=== PATIENT | female | born 1985 | race Caucasian/White ===

== ENCOUNTER 2017-12-09 13:18 | Inpatient (IN) ==
[2017-12-09 13:47] LABS: Bilirubin,Urine Moderate (Negative); Blood,Urine Negative (Negative); Clarity,Urine Cloudy (Clear); Color,Urine Dark Yellow (Yellow); Glucose,Urine (UA) Normal (Normal); Ketones,Urine 80 mg/dL (Negative); Leukocyte Esterase,Urine Negative (Negative); Nitrite,Urine Negative (Negative); Protein,Urine 100 mg/dL (Neg-Trace); Specific Gravity,Urine > 1.030 (1.010-1.025); Urobilinogen,Urine Normal (Normal)
[2017-12-09 13:51] LABS: Bacteria,Urine Moderate per hpf (None-Few); Hyaline Casts,Urine Few per lpf (None-Few); Squamous Epithelial Cell,Urine Many per lpf (None-Few)
[2017-12-09 14:02] LABS: Basophils % 0.2 %; Hemoglobin 13.8 g/dL (11.5-15.4); Immature Granulocytes % 0.4 % (0-4); Lymphocytes # 2.3 K/mcL (0.6-4.6); Lymphocytes % 20.7 %; Mean Corpuscular HGB Conc 32.9 g/dL (31.6-35.5); Mean Corpuscular Hemoglobin 29.7 pg (28.0-33.3); Mean Corpuscular Volume 90.3 fL (83.0-100.0); Mean Platelet Volume 9.3 fL (9.4-12.4); Monocytes # 0.4 K/mcL (0.0-1.3); Monocytes % 3.8 %; Neutrophils # 8.5 K/mcL (1.6-8.9); Platelet Count 401 K/mcL (140-400); Red Blood Count 4.65 M/mcL (3.82-4.97); Red Cell Distribution Width 15.8 % (11.5-14.5); Segmented Neutrophils % 74.9 %
[2017-12-09 14:27] LABS: Alanine Aminotransferase 11 Units/L (7-52); Albumin 4.8 g/dL (3.5-5.7); Albumin/Globulin Ratio 1.6 (1.1-2.2); Alkaline Phosphatase 52 Units/L (34-104); Aspartate Amino Transferase 12 Units/L (13-39); BUN/Creatinine Ratio 19 (6-26); Bilirubin,Direct 0.1 mg/dL (0.0-0.2); Bilirubin,Indirect 0.4 mg/dL (0.0-1.2); Bilirubin,Total 0.5 mg/dL (0.3-1.0); Blood Urea Nitrogen 14 mg/dL (6-20); Carbon Dioxide 18 mEq/L (23-29); Chloride 102 mEq/L (98-107); Glucose 121 mg/dL (70-105); Lipase 10 Units/L (11-82); Osmolality,Calculated 284 (280-300); Sodium 136 mEq/L (136-145); Total Protein 7.8 g/dL (6.4-8.9); eGFR For African Americans > 60 (> 60); eGFR For Non-African Americans > 60 (> 60)
[2017-12-09 14:40] LABS: Mucus,Urine Many (Few); Transitional Epi Cells,Urine Few per hpf (None-Few)
--- NOTE | 2017-12-09 14:40 | Emergency Department Note ---
Disposition Clinical Impression: Acute cholecystitis Disposition: Admitted As Inpatient Condition: Fair Time of Disposition: 15:25 Abdominal Pain HPI - General Chief Complaint: ED Abdominal Pain Stated Complaint: Gallbladder issues,vomiting Time Seen by Provider: 12/09/17 13:39 Source: patient Mode of arrival: ambulatory Limitations: no limitations Nursing Notes Reviewed: Yes Vital Signs Reviewed: Yes - History of Present Illness HPI Narrative: 32-year-old female presenting to the emergency department from ultrasound and her primary care physician's office for acute cholecystitis. She had an ultrasound done today that showed signs of acute cholecystitis she is having symptoms for approximately one month. This all right upper quadrant pain with some nausea. Labs were ordered in triage and only showed a leukocytosis otherwise everything else was normal. Ultrasound was reviewed and it did have a large, bile duct with pericholecystic fluid most likely for acute cholecystitis. Patient otherwise is having no complaint including no fevers, chills, chest pain, shortness of breath, back pain, neck pain, no pain with urination or changes in bowel movements, pain with urination. Patient has no other medical problems. Pain Scale: 2 - Related Data Home Medications Medication Instructions Recorded Confirmed No Known Home Drugs 12/09/17 12/09/17 Allergies Allergy/AdvReac Type Severity Reaction Status Date / Time No Known Allergies Allergy Verified 12/09/17 14:50 Review of Systems: 10 point review of systems done and negative unless otherwise stated in the history of present illness. All systems ED: reviewed and negative except as stated. 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: Reports: endometriosis Psychiatric history: Reports: no psych history - Social History Smoking status: Never smoker Alcohol use: Reports: none Drug use: Reports: unknown Physical Exam - General Limitations: no limitations General appearance: alert, in no apparent distress - Head Head exam: atraumatic, normocephalic, normal inspection - Eye Eye exam: Present: normal appearance, PERRL, EOMI - ENT ENT exam: normal exam, normal oropharynx, mucous membranes moist - Neck Neck exam: Present: normal inspection, full ROM, trachea midline - Chest Chest inspection: Present: normal inspection, symmetric chest wall rise - Respiratory Respiratory exam: Present: normal lung sounds bilaterally - Cardiovascular Cardiovascular exam: Present: regular rate, normal rhythm, normal heart sounds - Abdominal Exam Abdominal exam: Present: soft, tenderness (Tenderness in the right upper quadrant.), normal bowel sounds, Santa's sign. Absent: distention, guarding, rebound, rigidity, Rovsing's sign, tenderness at McBurney's Point Abdominal tenderness: Present: RUQ, moderate - Extremities Exam Extremities exam: Present: normal inspection, full ROM. Absent: tenderness, pedal edema - Expanded Lower Extremity Exam Neurovascular/Tendon exam: Present: normal capillary refill. Absent: pulse deficit, motor deficit, sensory deficit, tendon deficit - Neurological Exam Neurological exam: Present: alert, oriented X3 - Skin Skin exam: Present: warm, dry, intact, normal color Course Course Narrative: 32-year-old female presenting to the emergency department with right upper quadrant pain. Also was already done outpatient setting which did show acute cholecystitis. We will contact the on-call surgeon. No further treatment is needed at this time. - Consultations Consultation #1: Spoke with on-call surgeon Dr. Urban agreed to admit the patient to their service and they will see the patient in the emergency department. Patient is stable at this time. He had no recollection of this time they will place orders Time: 15:23 Vital Signs Temperature 97.7 F 12/09/17 13:20 Pulse Rate 142 12/09/17 13:20 Respiratory Rate 20 12/09/17 13:20 Blood Pressure 135/83 12/09/17 13:20 O2 Sat by Pulse Oximetry 96 12/09/17 13:20 Temperature 98.8 F 12/09/17 16:10 Pulse Rate 117 12/09/17 16:10 Respiratory Rate 20 12/09/17 16:10 Blood Pressure 122/82 12/09/17 16:10 O2 Sat by Pulse Oximetry 96 12/09/17 16:10 Oxygen Delivery Oxygen Delivery Room Air Abdominal Pain - MDM Narrative Medical decision making narrative: 32-year-old female here for acute cholecystitis spoke with the surgeon who will make the patient to their service. Patient does have acute cholecystitis based on ultrasound labs showed leukocytosis. Did place an IV and give patient Zofran and fentanyl for pain and nausea control. Patient is admitted to the surgical service and stable condition at this time. - Medical Records Medical records reviewed: Yes I reviewed the patient's medical records. - Lab Data Lab results reviewed: Yes I reviewed the patient's lab results. Result diagrams: 12/09/17 13:50 12/09/17 13:50 Lab Results 12/09/17 12/09/17 12/09/17 Range/Units 13:30 13:30 13:50 WBC 11.3 H (4.3-11.1) K/mcL RBC 4.65 (3.82-4.97) M/mcL Hgb 13.8 (11.5-15.4) g/dL Hct 42.0 (35.3-44.9) % MCV 90.3 (83.0-100.0) fL MCH 29.7 (28.0-33.3) pg MCHC 32.9 (31.6-35.5) g/dL RDW 15.8 H (11.5-14.5) % Plt Count 401 H (140-400) K/mcL MPV 9.3 L (9.4-12.4) fL Immature Gran % 0.4 (0-4) % Seg Neutrophils % 74.9 % Lymphocytes % 20.7 % Monocytes % 3.8 % Eosinophils % 0.0 % Basophils % 0.2 % Neutrophils # 8.5 (1.6-8.9) K/mcL Lymphocytes # 2.3 (0.6-4.6) K/mcL Monocytes # 0.4 (0.0-1.3) K/mcL Eosinophils # 0.0 (0.0-0.6) K/mcL Basophils # 0.0 (0.0-0.2) K/mcL Sodium (136-145) mEq/L Potassium (3.5-5.1) mEq/L Chloride (98-107) mEq/L Carbon Dioxide (23-29) mEq/L BUN (6-20) mg/dL Creatinine (0.60-1.20) mg/dL Est GFR ( Amer) (> 60) Est GFR (Non-Af Amer) (> 60) BUN/Creatinine Ratio (6-26) Glucose (70-105) mg/dL Calculated Osmolality (280-300) Calcium (8.6-10.3) mg/dL Total Bilirubin (0.3-1.0) mg/dL Direct Bilirubin (0.0-0.2) mg/dL Indirect Bilirubin (0.0-1.2) mg/dL AST (13-39) Units/L ALT (7-52) Units/L Alkaline Phosphatase (34-104) Units/L Serum Total Protein (6.4-8.9) g/dL Albumin (3.5-5.7) g/dL Globulin (2.4-3.5) g/dL Albumin/Globulin Ratio (1.1-2.2) Lipase (11-82) Units/L Urine Color Dark Yellow (Yellow) Urine Clarity Cloudy A (Clear) Urine pH 6.0 (5.0-8.0) pH Units Ur Specific [place] > 1.030 H (1.010-1.025) Urine Protein 100 H (Neg-Trace) mg/dL Urine Glucose (UA) Normal (Normal) mg/dL Urine Ketones 80 H (Negative) mg/dL Urine Blood Negative (Negative) Urine Nitrite Negative (Negative) Urine Bilirubin Moderate H (Negative) Urine Urobilinogen Normal (Normal) mg/dL Ur Leukocyte Esterase Negative (Negative) Urine Microscopic RBC 5-15 H (0-3) per hpf Urine Microscopic WBC 5-15 H (0-3) per hpf Ur Squamous Epith Cells Many H (None-Few) per lpf Ur Transition Epith Cell Few (None-Few) per hpf Urine Bacteria Moderate H (None-Few) per hpf Hyaline Casts Few (None-Few) per lpf Urine Mucus Many H (Few) Urine Test Negative (Negative) 12/09/17 Range/Units 13:50 WBC (4.3-11.1) K/mcL RBC (3.82-4.97) M/mcL Hgb (11.5-15.4) g/dL Hct (35.3-44.9) % MCV (83.0-100.0) fL MCH (28.0-33.3) pg MCHC (31.6-35.5) g/dL RDW (11.5-14.5) % Plt Count (140-400) K/mcL MPV (9.4-12.4) fL Immature Gran % (0-4) % Seg Neutrophils % % Lymphocytes % % Monocytes % % Eosinophils % % Basophils % % Neutrophils # (1.6-8.9) K/mcL Lymphocytes # (0.6-4.6) K/mcL Monocytes # (0.0-1.3) K/mcL Eosinophils # (0.0-0.6) K/mcL Basophils # (0.0-0.2) K/mcL Sodium 136 (136-145) mEq/L Potassium 4.0 (3.5-5.1) mEq/L Chloride 102 (98-107) mEq/L Carbon Dioxide 18 L (23-29) mEq/L BUN 14 (6-20) mg/dL Creatinine 0.74 (0.60-1.20) mg/dL Est GFR ( Amer) > 60 (> 60) Est GFR (Non-Af Amer) > 60 (> 60) BUN/Creatinine Ratio 19 (6-26) Glucose 121 H (70-105) mg/dL Calculated Osmolality 284 (280-300) Calcium 10.0 (8.6-10.3) mg/dL Total Bilirubin 0.5 (0.3-1.0) mg/dL Direct Bilirubin 0.1 (0.0-0.2) mg/dL Indirect Bilirubin 0.4 (0.0-1.2) mg/dL AST 12 L (13-39) Units/L ALT 11 (7-52) Units/L Alkaline Phosphatase 52 (34-104) Units/L Serum Total Protein 7.8 (6.4-8.9) g/dL Albumin 4.8 (3.5-5.7) g/dL Globulin 3.0 (2.4-3.5) g/dL Albumin/Globulin Ratio 1.6 (1.1-2.2) Lipase 10 L (11-82) Units/L Urine Color (Yellow) Urine Clarity (Clear) Urine pH (5.0-8.0) pH Units Ur Specific [place] (1.010-1.025) Urine Protein (Neg-Trace) mg/dL Urine Glucose (UA) (Normal) mg/dL Urine Ketones (Negative) mg/dL Urine Blood (Negative) Urine Nitrite (Negative) Urine Bilirubin (Negative) Urine Urobilinogen (Normal) mg/dL Ur Leukocyte Esterase (Negative) Urine Microscopic RBC (0-3) per hpf Urine Microscopic WBC (0-3) per hpf Ur Squamous Epith Cells (None-Few) per lpf Ur Transition Epith Cell (None-Few) per hpf Urine Bacteria (None-Few) per hpf Hyaline Casts (None-Few) per lpf Urine Mucus (Few) Urine Test (Negative) Attestation Statement - Attestation Attestation: I examined this patient and my medical decision-making was reviewed with the Resident Physician. I agree with the documented findings, disposition and treatment plan as described except to the extent set forth below. Tender, voluntary guarding. Non-toxic in appearance, hemodynamically normal. Studies reviewed by me. Accepted for admission by surgery.
[2017-12-09] MEDS ORDERED: Ondansetron 4 MG/2 ML VIAL IVP ONE (15:23)
[2017-12-09] MEDS ORDERED: *HR* FentaNYL (PF) 100 MCG/2 ML VIAL IVP ONE (15:23)
[2017-12-09] MEDS ORDERED: *HR* Promethazine 25 MG/ML VIAL IVP PRN (15:33)
[2017-12-09] MEDS ORDERED: Ondansetron 4 MG/2 ML VIAL IVP PRN (15:33)
[2017-12-09] MEDS ORDERED: OXYCODONE Oral CONC 10 MG/0.5 ML ORAL.SYG SL PRN (15:33)
[2017-12-09] MEDS ORDERED: Naloxone 0.4 MG/ML INJ IVP PRN (15:33)
[2017-12-09] MEDS ORDERED: Pantoprazole 40 MG VIAL IVP SCH (15:45)
[2017-12-09] MEDS ORDERED: 0.9 % Sodium Chloride 1,000 ML IVC SCH ×2 (15:45→18:00)
--- NOTE | 2017-12-09 15:53 | General Surg History&Physical ---
<Andrés Rich - Last Filed: 12/09/17 16:30> Date of Encounter: 12/09/17 Time of Encounter: 15:43 Assessment and Plan (1) Acute cholecystitis Current Visit: Yes Status: Acute The assessment and plan as outlined above was discussed with the patient and/or family members who expressed understanding and agreement. All questions were answered. Ultrasound on 12/09/17 reports suggests acute cholecystitis. Ultrasound report reads distended gallbladder with mild pericholecystic fluid and positive sonographic Santa's sign. Mildly prominent common bile duct measuring 7 mm. CBCs shows leukocytosis with a white blood count of 11.3. Patient is admitted to the surgical service. Dr. Chucho Sousa agrees to accept the patient and surgical intervention plan in the next 24 to 48 hours for acute cholecystitis. Patient had approximately 25 pound weight loss within the last month due to fear of food causing pain. -Pain control -IVF at 125 mls/hr -Order urine -Zofran and Promethazine as needed for nausea and vomiting. -IV antibiotics: Zosyn -NPO diet (2) Dehydration Current Visit: Yes Status: Acute The assessment and plan as outlined above was discussed with the patient and/or family members who expressed understanding and agreement. All questions were answered. Dehydration and tachycardia most likely secondary to weeks of nausea and vomiting. Patient was tachycardic on exam. -Patient was given 2 L bolus. Vitals rechecked. -MIVF at 125 mL per hour History of Present Illness Chief complaint: Nausea, vomiting, and RUQ pain HPI: Ms. Camilo is a 32 year old female with a surgical history of laparoscopic surgeriesx2 for her endometriosis presented to the emergency department from ultrasound per her primary care physician for acute cholecystitis. Patient states she has been having nausea and vomiting for the past 4 to 6 weeks. Per patient, She stated that she has visited the emergency department before but they were unable to do a ultrasound of a gallbladder because it was a weekend. She returned to the emergency department again in attempt to get another ultrasound but "it was too late in the day". Patient stated that she received an ultrasound for her gallbladder today and then later she received a call that stated she has to report to the emergency department. The patient continues to admit nausea and vomiting, no appetite, and right upper quadrant pain. She describes right upper quadrant pain as intermittent, sharp, with radiation to the back. She admits palpation makes the pain worse and sitting up and flexing forward makes the pain better. Her partner states that she "felt warm" but no documented fever. She denies any headaches, vision changes, near syncope, chest pain, shortness of breath, difficult the breathing, diarrhea, blood in stool, urinary symptoms, blood in her urine, numbness and tingling, and any weaknesses. The patient has no other concerns at this time. Past Med Surg Social Fam HX - Past Medical History Medical history: no medical history Psychiatric history: no psych history - Social History Smoking Status: Never smoker Smokeless Tobacco Status: No Alcohol use: none Drug use: unknown Medications and Allergies No Known Home Drugs 12/09/17 [History] 3 Allergy/AdvReac Type Severity Reaction Status Date / Time No Known Allergies Allergy Verified 12/09/17 14:50 Review of Systems All systems PM: The remainder of the systems were reviewed and are negative - Constitutional as per HPI General Surgery Exam Initial Vital Signs Temp Pulse Resp BP Pulse Ox 97.7 F 142 20 135/83 96 12/09/17 13:20 12/09/17 13:20 12/09/17 13:20 12/09/17 13:20 12/09/17 13:20 - General physical appearance well developed, well nourished, moderate distress, other (Patient appears to be a moderate distress. She appears anxious and shaky.) - Eyes PERRL, normal ocular movement - Neck trachea midline - Respiratory normal expansion, normal respiratory effort, clear to percussion, clear to auscultation - Cardiovascular Cardiovascular exam: Present: tachycardia, no murmurs/rubs/gallops - Abdomen Abdomen general surgery: Present: bowel sounds present, soft, tender (Right Upper quadrant tenderness to palpation. Positive Santa sign. Negative McBurney's point) Abdominal Tenderness: Present: RUQ - Integumentary Integumentary general surgery: Present: warm and dry, no abnormal pigmentation. Absent: diaphoresis - Neurologic Present: CN 2-12 grossly intact - Musculoskeletal Present: normal gait, normal posture - Psychiatric Psychiatric general surgery: Present: appropriate, oriented to person, oriented to place, oriented to time, speech is normal, other (Anxious) Results - Labs 12/09/17 13:50 12/09/17 13:50 Abnormal lab results WBC 11.3 K/mcL (4.3-11.1) H 12/09/17 13:50 RDW 15.8 % (11.5-14.5) H 12/09/17 13:50 Plt Count 401 K/mcL (140-400) H 12/09/17 13:50 MPV 9.3 fL (9.4-12.4) L 12/09/17 13:50 Carbon Dioxide 18 mEq/L (23-29) L 12/09/17 13:50 Glucose 121 mg/dL (70-105) H 12/09/17 13:50 AST 12 Units/L (13-39) L 12/09/17 13:50 Lipase 10 Units/L (11-82) L 12/09/17 13:50 Urine Clarity Cloudy (Clear) A 12/09/17 13:30 Ur Specific [place] > 1.030 (1.010-1.025) H 12/09/17 13:30 Urine Protein 100 mg/dL (Neg-Trace) H 12/09/17 13:30 Urine Ketones 80 mg/dL (Negative) H 12/09/17 13:30 Urine Bilirubin Moderate (Negative) H 12/09/17 13:30 Urine Microscopic RBC 5-15 per hpf (0-3) H 12/09/17 13:30 Urine Microscopic WBC 5-15 per hpf (0-3) H 12/09/17 13:30 Ur Squamous Epith Cells Many per lpf (None-Few) H 12/09/17 13:30 Urine Bacteria Moderate per hpf (None-Few) H 12/09/17 13:30 Urine Mucus Many (Few) H 12/09/17 13:30 All other labs normal. <Chucho Sousa - Last Filed: 12/09/17 19:11> Date of Encounter: 12/09/17 History of Present Illness HPI: Ms. Camilo is a 32 year old female Past Med Surg Social Fam HX - Family History Father Hx Family Cardiac Disorders: Yes Hx Family Endocrine Disorder: Yes (DM) Maternal Grandmother Living Status: Cause of : CA Hx Family Cancer: Yes (Colon) Review of Systems All systems PM: The remainder of the systems were reviewed and are negative General Surgery Exam Initial Vital Signs Temp Pulse Resp BP Pulse Ox 97.7 F 142 20 135/83 96 12/09/17 13:20 12/09/17 13:20 12/09/17 13:20 12/09/17 13:20 12/09/17 13:20 Results - Labs 12/09/17 13:50 12/09/17 13:50 Abnormal lab results WBC 11.3 K/mcL (4.3-11.1) H 12/09/17 13:50 RDW 15.8 % (11.5-14.5) H 12/09/17 13:50 Plt Count 401 K/mcL (140-400) H 12/09/17 13:50 MPV 9.3 fL (9.4-12.4) L 12/09/17 13:50 Carbon Dioxide 18 mEq/L (23-29) L 12/09/17 13:50 Glucose 121 mg/dL (70-105) H 12/09/17 13:50 AST 12 Units/L (13-39) L 12/09/17 13:50 Lipase 10 Units/L (11-82) L 12/09/17 13:50 Urine Clarity Cloudy (Clear) A 12/09/17 13:30 Ur Specific [place] > 1.030 (1.010-1.025) H 12/09/17 13:30 Urine Protein 100 mg/dL (Neg-Trace) H 12/09/17 13:30 Urine Ketones 80 mg/dL (Negative) H 12/09/17 13:30 Urine Bilirubin Moderate (Negative) H 12/09/17 13:30 Urine Microscopic RBC 5-15 per hpf (0-3) H 12/09/17 13:30 Urine Microscopic WBC 5-15 per hpf (0-3) H 12/09/17 13:30 Ur Squamous Epith Cells Many per lpf (None-Few) H 12/09/17 13:30 Urine Bacteria Moderate per hpf (None-Few) H 12/09/17 13:30 Urine Mucus Many (Few) H 12/09/17 13:30 All other labs normal. - Attending Attestation I have personally seen and examined the patient. I have reviewed pertinent labs , imaging, progress notes, including this one. I agree with the above assessment and plan and wish to include the following... 32F with biliary colic vs acute cholecystitis; currently in no acute distress, still with pain with radiation to her back; non peritoneal; will plan for robotic cholecystectomy tonight;
[2017-12-09] MEDS ORDERED: Piperacillin/Tazobactam 3.375 GM in D5% in Water (Mini-Bag+) 100 ML IVPB SCH ×2 (16:00)
[2017-12-09] MEDS: 0.9 % Sodium Chloride 1,000 ML IVC SCH ×4 (16:45→23:19)
[2017-12-09] MEDS: OXYCODONE Oral CONC 10 MG/0.5 ML ORAL.SYG SL PRN (18:18)
[2017-12-09] MEDS: Piperacillin/Tazobactam 3.375 GM in 0.9 % Sodium Chloride Mini Bag 100 ML IVPB SCH (18:30)
[2017-12-10] MEDS: OXYCODONE Oral CONC 10 MG/0.5 ML ORAL.SYG SL PRN (00:10)
[2017-12-10] MEDS ORDERED: *HR* Rocuronium Bromide 50 MG/5 ML VIAL ONE ×2 (01:02→03:20)
[2017-12-10] MEDS ORDERED: Lidocaine -MPF 2% 2 ML VIAL ONE (01:02)
[2017-12-10] MEDS ORDERED: Lidocaine -MPF 4% 5 ML AMPUL ONE (01:02)
[2017-12-10] MEDS ORDERED: *HR* Propofol 200 MG/20 ML VIAL IVP ONE (01:03)
[2017-12-10] MEDS ORDERED: *HR* Midazolam HCl 2 MG/2 ML VIAL ONE (01:03)
[2017-12-10] MEDS: Piperacillin/Tazobactam 3.375 GM in 0.9 % Sodium Chloride Mini Bag 100 ML IVPB SCH (01:03)
[2017-12-10] MEDS ORDERED: *HR* FentaNYL (PF) 100 MCG/2 ML VIAL ONE ×2 (01:03→02:48)
--- NOTE | 2017-12-10 01:16 | Anesthesia Evaluation PreOp ---
Date of Encounter: 12/10/17 Time of Encounter: 01:15 - Past History Planned Operation: Robotic lap cierra Cardiac History: Denies any Significant Hx Pulmonary History: Denies Any Significant HX BUS AIDE History: Denies Any Significant HX Other Medical History: Denies Any Significant HX Anesthesia History: No Prior Anesthetic Complications, Past Anesthesia ( laparoscopy for endometriosis) Test: Negative Alcohol Use: none Drug use: unknown Medications and Allergies No Known Home Drugs 12/09/17 [History] 3 Allergy/AdvReac Type Severity Reaction Status Date / Time No Known Allergies Allergy Verified 12/09/17 14:50 - Meds/Allergy Pre-op Review Medications Reviewed: Yes Allergies Reviewed: Yes Beta Blockers on Current Med List: No Anesthesia Results - Labs 12/09/17 13:50 12/09/17 13:50 Anesthesia Exam Vital Signs/O2 Sat, Most Current Temp Pulse Resp BP Pulse Ox 98.1 F 98 15 111/71 95 12/10/17 00:30 12/10/17 00:30 12/10/17 00:30 12/10/17 00:30 12/10/17 00:30 Weight: 88kg NPO (# of Hours): >8 - HEENT Pupil (Motor): Pupils equal, EOMI Mallampati: I Teeth: Normal Oral Opening: Greater than 3 - BUS AIDE LOC: Oriented BUS AIDE Motor: Normal RUE, Normal LUE, Normal RLE, Normal LLE, Normal Face BUS AIDE Sensory: Normal: RUE, LUE, RLE, LLE, Face - Cardiac Rhythm: Regular - Pulmonary Breath Sounds: bilateral Clear Respiratory Effort: Symmetrical Anesthesia Assess/Plan ASA Score: 1 Modified Maria De Jesus Scale for Level of Consciousness: Cooperative, oriented, and tranquil Anesthetic Plan: General Monitoring Plan: Standard Monitors Recovery Plan: PACU
[2017-12-10] MEDS ORDERED: MORPHINE SUL Oral CONC 10 MG/0.5 ML ORAL.SYG SL PRN (01:17)
[2017-12-10] MEDS ORDERED: *HR* OxyCODONE Immed Rel 5 MG TABLET PO PRN (01:17)
[2017-12-10] MEDS ORDERED: Ondansetron 4 MG/2 ML VIAL IVP ONE (01:17)
[2017-12-10] MEDS ORDERED: *HR* Promethazine 25 MG/ML VIAL IVP PRN ×2 (01:17→04:31)
[2017-12-10] MEDS ORDERED: Acetaminophen IV 1,000 MG/100 ML INFUS..BTL IVPB ONE ×2 (01:17→04:31)
[2017-12-10] MEDS ORDERED: *HR* Meperidine 25 MG/ML SYRINGE IVP PRN (01:17)
[2017-12-10] MEDS ORDERED: Acetaminophen IV 1,000 MG/100 ML INFUS..BTL ONE (01:59)
[2017-12-10] MEDS ORDERED: Scopolamine Patch 1.5 MG PATCH.TD72 ONE (02:05)
[2017-12-10] MEDS ORDERED: Dexamethasone 4 MG/ML VIAL ONE (02:35)
[2017-12-10] MEDS ORDERED: Neostigmine Methylsulfate 3 MG/3 ML SYRINGE ONE ×2 (02:35→03:32)
[2017-12-10] MEDS ORDERED: Ondansetron 4 MG/2 ML VIAL ONE ×2 (02:35→03:42)
[2017-12-10] MEDS ORDERED: Ketorolac 30 MG/ML VIAL ONE (03:42)
--- NOTE | 2017-12-10 04:07 | Operative Note ---
Date of procedure: 12/10/17 Pre-op diagnosis: biliary colic Post-op diagnosis: same Procedure: robotic cholecystectomy with intraoperative cholangiogram Complications: none Anesthesia: GETA Local Anesthetics: 0.5% Sensorcaine HCL SubQ (cc) Surgeon: Chucho Sousa Was there an behavioral assistant present: Yes Architectural Engineering Teacher: Briana Painter Estimated blood loss (cc): 10 Specimen: gallbladder and contents Condition: stable Disposition: PACU Procedure in Detail: The patient was brought into the operating room suite and was placed in the supine position. Mechanical DVT prophylaxis was applied. A time-in was conducted. The patient underwent smooth induction of anesthesia. Preoperative antibiotics were given. The patient was prepped and draped in the usual fashion. A time-out was held identifying the correct patient, pathology, and procedure. Everyone was in agreement and we began the procedure. Incision to Dissection I started by creating a 12mm supraumbilical incision. Via open Kaveh technique I did enter into the abdomen. I inserted the 12mm trocar followed by the 30 degree camera, ensured that I did not cause intraabdominal injury upon entry, and quickly identified the gallbladder. I created a 5mm incisions one handbreadth to the left and right of the umbilical incision and an behavioral assistant port along the R anterior axillary line. I then docked the robot in the usual fashion. Using laparoscopic graspers I managed to elevate the gallbladder above the liver. At the Console I grasp the edge of the gallbladder to retract laterally. Using the [place] instrument as well as the hook-electrocautery, I dissected out the cystic duct and the cystic artery. I excised the posterior tissue to visualize the liver. I was able to clearly visualize the critical view of safety. i utilized the Firefly function to serve as an intraoperative cholangiogram (after injecting ICG) to distinguish between the cystic duct and the common bile duct. Critical view of Safety to Excison of the gallbladder I then clipped both structures using plastic clips, two on the stay side, one on the specimen side. Using robotic scissors, I cut between the clip on the specimen side and the first clip on the stay side. Then using tension and counter-tension, I used the electrocautery to excise the gallbladder off of the liver bed. Before complete excision, I evaluated the liver bed to ensure there 1.) there was no bleeding, 2. No excessive bile leakage, and 3.) to evaluate my clips. There was no bleeding, bile leakage, and the clips were all the way across both duct and artery. Removal of gallbladder to Closure After undocking the robot, I inserted the endocatch bag into the umbilical port. I placed the specimen into the bag and retrieved it through the umbilical port. i then irrgiated the liver bed and above the liver before suctioning both irrigation fluid and air. I removed the 5mm ports, turned off the insufllation, then removed the 12mm umbilical port. I then close the umbilical fascia a vicryl suture in a figure of 8 fashion. All incisions were closed with interrupted 4-0 monocryl and sealed with dermabond. The patient tolerated the procedure well and went back to PACU in stable condition.
--- NOTE | 2017-12-10 04:29 | Anesthesia Evaluation Post Op ---
Date of Encounter: 12/10/17 Time of Encounter: 04:29 - Vital Signs Vital Signs: Vital Signs/O2 Sat, Most Current Temp Pulse Resp BP Pulse Ox 98.7 F 90 20 126/74 97 12/10/17 04:21 12/10/17 04:21 12/10/17 04:21 12/10/17 04:21 12/10/17 04:21 - Lungs Lungs: Clear Ascult./Percussion - Airway Airway: Non-obstructed - Cardiovascular Regular Rate - Mental Status Mental Status: Alert & Oriented, Answers Appropriately - Nausea Vomiting Nausea Vomiting: Not Present - Hydration Hydration: Ice chips - Discharge PostOp Status: Transfer Patient to floor
[2017-12-10] MEDS ORDERED: Ondansetron 4 MG/2 ML VIAL IVP PRN (04:31)
[2017-12-10] MEDS ORDERED: OXYCODONE Oral CONC 10 MG/0.5 ML ORAL.SYG SL PRN ×2 (04:31)
[2017-12-10] MEDS ORDERED: 0.9 % Sodium Chloride 1,000 ML IVC SCH (04:31)
[2017-12-10] MEDS ORDERED: Naloxone 0.4 MG/ML INJ IVP PRN (04:31)
[2017-12-10 06:21] LABS: BUN/Creatinine Ratio 20 (6-26); Blood Urea Nitrogen 12 mg/dL (6-20); Calcium 8.2 mg/dL (8.6-10.3); Carbon Dioxide 19 mEq/L (23-29); Chloride 107 mEq/L (98-107); Glucose 104 mg/dL (70-105); Osmolality,Calculated 286 (280-300); Potassium 4.1 mEq/L (3.5-5.1); Sodium 138 mEq/L (136-145); eGFR For African Americans > 60 (> 60); eGFR For Non-African Americans > 60 (> 60)
[2017-12-10 06:24] LABS: Basophils % 0.1 %; Hematocrit 33.3 % (35.3-44.9); Immature Granulocytes % 0.6 % (0-4); Lymphocytes # 1.5 K/mcL (0.6-4.6); Lymphocytes % 16.7 %; Mean Corpuscular HGB Conc 32.1 g/dL (31.6-35.5); Mean Corpuscular Hemoglobin 29.5 pg (28.0-33.3); Mean Corpuscular Volume 91.7 fL (83.0-100.0); Mean Platelet Volume 9.3 fL (9.4-12.4); Monocytes # 0.3 K/mcL (0.0-1.3); Monocytes % 3.2 %; Neutrophils # 6.9 K/mcL (1.6-8.9); Nucleated Red Blood Cells 0.2 /100 WBC (0); Platelet Count 273 K/mcL (140-400); Red Blood Count 3.63 M/mcL (3.82-4.97); Red Cell Distribution Width 16.1 % (11.5-14.5); Segmented Neutrophils % 79.4 %
[2017-12-10 06:44] LABS: Hemoglobin 10.7 g/dL (11.5-15.4)
[2017-12-10 06:59] VITALS: BP 116/74
--- NOTE | 2017-12-10 07:55 | Discharge Summary ---
<Zaira Chavarria - Last Filed: 12/10/17 07:52> Orders not resulted at time of discharge: Pending orders 12/10/17 03:29 Surgical Pathology [PTH] Routine Date of Encounter: 12/10/17 Time of Encounter: 07:56 - Discharge Diagnosis (1) Acute cholecystitis Priority: Primary Status: Resolved (2) Dehydration Priority: Primary Status: Resolved General Surgery Exam Initial Vital Signs Temp Pulse Resp BP Pulse Ox 97.7 F 142 20 135/83 96 12/09/17 13:20 12/09/17 13:20 12/09/17 13:20 12/09/17 13:20 12/09/17 13:20 VITAL SIGNS: Reviewed. See [facility] GENERAL: In no apparent distress. HEENT: Normocephalic, atraumatic, pupils are equal and reactive, extraocular motions intact, oropharynx is pink and moist, there is no neck adenopathy or JVD noted. CHEST/RESPIRATORY: The thorax is free from signs of trauma. Lung sounds: clear to auscultation, normal respiratory effort CARDIAC: Regular rate and rhythm. Normal S1 and S2, without murmurs, gallops, or rubs. VASCULAR: No Edema. 2+ peripheral pulses. ABDOMEN: soft, expected postoperative tenderness, hypoactive bowel sounds, no evidence of bleeding INCISION: Surgical incision is clean, dry, and intact. There are no signs of cellulitis or infection noted. MUSCULOSKELETAL: Good range of motion of all major joints. Extremities without clubbing, cyanosis or edema. NEUROLOGIC EXAM: Alert and oriented x 3. Speech normal. Follows commands. PSYCHIATRIC: Mood normal. SKIN: No rash or lesions. - Hospital Course Hospital course: Ms. Camilo is a 32 year old female who presented on 12/09/2017 with complaints of a four-week history of right upper quadrant abdominal pain, a 25 pound weight loss over the last 4 weeks, nausea, vomiting, food fear, and increased feelings of heartburn. She had been seen at the end of October for the same findings at which time she had a CT of the abdomen which was not indicative of acute cholecystitis. She was recommended to see her PCP and possibly an outpatient ultrasound. She had presented to her PCP with complaints of these complaints and recommended to complete the right upper quadrant ultrasound which revealed acute a calculus cholecystitis. In the emergency department she was noted to be tachycardic and her labs were consistent with acute cholecystitis and dehydration. She was given to liters of fluid as a bolus and taken to the operating room where she underwent an uncomplicated laparoscopic cholecystectomy. Her white count has returned to normal, she is ambulating and voiding without difficulty, tolerating liquids without nausea or vomiting, afebrile, and vital signs are stable. We will begin discharge planning to home with a follow-up in the office on 12/24/2017 at 9:20 AM. - Time Spent with Patient Total time spent providing and/or coordinating discharge services: - Discharge Medications Prescriptions: Ondansetron ODT [Zofran ODT] 4 mg SL Q6HR PRN #15 tab.rapdis PRN Reason: nausea/vomiting OxyCODONE/APAP 5/325 [Percocet 5/325 MG] 1 each PO Q6HR PRN 7 Days #28 tablet PRN Reason: Pain Ibuprofen 800 mg PO Q8H PRN #42 tablet PRN Reason: Mild Pain Polyethylene Glycol 3350 [MiraLAX Powder Bulk 17.9 Oz] 1 scoop PO DAILY #510 gm Home Medications: Ibuprofen 800 mg PO Q8H PRN #42 tablet 12/10/17 [Rx] Ondansetron ODT [Zofran ODT] 4 mg SL Q6HR PRN #15 tab.rapdis 12/10/17 [Rx] OxyCODONE/APAP 5/325 [Percocet 5/325 MG] 1 each PO Q6HR PRN 7 Days #28 tablet [Rx] Polyethylene Glycol 3350 [MiraLAX Powder Bulk 17.9 Oz] 1 scoop PO DAILY #510 gm 12/10/17 [Rx] Allergies/Adverse Reactions: 3 Allergy/AdvReac Type Severity Reaction Status Date / Time No Known Allergies Allergy Verified 12/09/17 14:50 Date of admission: 12/09/17 15:25 Primary care physician: Ranjana Jansen CNP Discharging clinician: Chucho Chavarria) Anticipated date of discharge: 12/10/17 Labs on day of discharge: Labs from last 24 hours 12/10/17 12/10/17 12/10/17 05:51 05:46 05:46 WBC 8.7 RBC 3.63 L Hgb 10.7 L D Hct 33.3 L MCV 91.7 MCH 29.5 MCHC 32.1 RDW 16.1 H Plt Count 273 MPV 9.3 L Immature Gran % 0.6 Seg Neutrophils % 79.4 Lymphocytes % 16.7 Monocytes % 3.2 Eosinophils % 0.0 Basophils % 0.1 Neutrophils # 6.9 Lymphocytes # 1.5 Monocytes # 0.3 Eosinophils # 0.0 Basophils # 0.0 Nucleated RBCs/100 WBC 0.2 H Sodium 138 Potassium 4.1 Chloride 107 Carbon Dioxide 19 L BUN 12 Creatinine 0.60 Est GFR ( Amer) > 60 Est GFR (Non-Af Amer) > 60 BUN/Creatinine Ratio 20 Glucose 104 POC Glucose 107 H Calculated Osmolality 286 Calcium 8.2 L 12/10/17 12/09/17 00:28 17:09 WBC RBC Hgb Hct MCV MCH MCHC RDW Plt Count MPV Immature Gran % Seg Neutrophils % Lymphocytes % Monocytes % Eosinophils % Basophils % Neutrophils # Lymphocytes # Monocytes # Eosinophils # Basophils # Nucleated RBCs/100 WBC Sodium Potassium Chloride Carbon Dioxide BUN Creatinine Est GFR ( Amer) Est GFR (Non-Af Amer) BUN/Creatinine Ratio Glucose POC Glucose 92 H 84 Calculated Osmolality Calcium - Patient Status Disposition: Home, Self-Care Condition: Fair Functional capacity at discharge: independent ambulation Overall status at discharge: patient is progressing back to baseline - Discharge Instructions Instructions: Laparoscopic Cholecystectomy (DC) Follow Up With: Ranjana Jansen CNP [Primary Care Provider] - Forms: Inpatient Work/School Release Additional Instructions: General Surgical Discharge Instructions 1. No pushing, pulling, or lifting greater than 15 lbs for 2-4 weeks (depending upon procedure). 2. You may shower beginning today, but no tub baths, soaking, or swimming for 2 weeks. 3. You may resume driving when you are off narcotics and are safe to react in a car. 4. Take ibuprofen every 8 hours for discomfort. If this does not relieve discomfort, you may take the as needed Percocet. Take narcotics as directed. Do not take more narcotics then directed and do not share your narcotics with any other person. Do not drink alcohol while on narcotics. 5. Take stool softeners (Colace) or a water based laxative (Miralax) while taking narcotics. You may hold for loose stools. 6. Report any fevers greater than 100.5F, increase abdominal discomfort, drainage that looks like pus, increased redness or pain at the surgical site, or any vomiting. 7. Report any pain in the calves, shortness of breath, or rapid heartbeat. 8. Follow-up in the office as directed. 9. If you were prescribed antibiotics, do not stop them without talking to your provider. - Diet and Activity Activity: increase activity as tolerated Diet: advance to your usual diet <Chucho Sousa - Last Filed: 12/10/17 21:02> Orders not resulted at time of discharge: Pending orders 12/10/17 03:29 Surgical Pathology [PTH] Routine Date of Encounter: 12/10/17 General Surgery Exam Initial Vital Signs Temp Pulse Resp BP Pulse Ox 97.7 F 142 20 135/83 96 12/09/17 13:20 12/09/17 13:20 12/09/17 13:20 12/09/17 13:20 12/09/17 13:20 - Hospital Course Hospital course: Ms. Camilo is a 32 year old female - Time Spent with Patient Total time spent providing and/or coordinating discharge services: Date of admission: 12/09/17 15:25 Primary care physician: Ranjana Jansen CNP Labs on day of discharge: Labs from last 24 hours 12/10/17 12/10/17 12/10/17 05:51 05:46 05:46 WBC 8.7 RBC 3.63 L Hgb 10.7 L D Hct 33.3 L MCV 91.7 MCH 29.5 MCHC 32.1 RDW 16.1 H Plt Count 273 MPV 9.3 L Immature Gran % 0.6 Seg Neutrophils % 79.4 Lymphocytes % 16.7 Monocytes % 3.2 Eosinophils % 0.0 Basophils % 0.1 Neutrophils # 6.9 Lymphocytes # 1.5 Monocytes # 0.3 Eosinophils # 0.0 Basophils # 0.0 Nucleated RBCs/100 WBC 0.2 H Sodium 138 Potassium 4.1 Chloride 107 Carbon Dioxide 19 L BUN 12 Creatinine 0.60 Est GFR ( Amer) > 60 Est GFR (Non-Af Amer) > 60 BUN/Creatinine Ratio 20 Glucose 104 POC Glucose 107 H Calculated Osmolality 286 Calcium 8.2 L 12/10/17 12/09/17 00:28 17:09 WBC RBC Hgb Hct MCV MCH MCHC RDW Plt Count MPV Immature Gran % Seg Neutrophils % Lymphocytes % Monocytes % Eosinophils % Basophils % Neutrophils # Lymphocytes # Monocytes # Eosinophils # Basophils # Nucleated RBCs/100 WBC Sodium Potassium Chloride Carbon Dioxide BUN Creatinine Est GFR ( Amer) Est GFR (Non-Af Amer) BUN/Creatinine Ratio Glucose POC Glucose 92 H 84 Calculated Osmolality Calcium - Attending Attestation I have personally seen and examined the patient. I have reviewed pertinent labs , imaging, progress notes, including this one. I agree with the above assessment and plan and wish to include the following... 32F POD#1 s/p marla cholecystectomy; pain controlled; tolerating diet; ambulating , voiding; okay for discharge with follow up in 2 weeks with myself or [employer]
[2017-12-10] MEDS ORDERED: Ibuprofen 800 MG TABLET PO ONE (08:05)
[2017-12-10] MEDS ORDERED: *HR* OxyCODONE/APAP 5/325 TABLET PO PRN (08:05)
[2017-12-10] MEDS ORDERED: Pantoprazole 40 MG VIAL IVP SCH (09:00)
== END 2017-12-10 11:32 | disposition home or self-care (01) | DRG 419 ==
LOC: EMEROO 13:18 → 3ANU 15:25
PROVIDERS: ADMIT Surgery; ATTEND Surgery